=== PATIENT | female | born 1945 | race Caucasian/White ===

== ENCOUNTER 2017-02-16 13:12 | Outpatient (CLI) | payer MEDICARE, BC ==
--- NOTE | 2017-02-16 17:03 | ULT ---
ULTRASOUND LEFT BREAST 02/16/17 HISTORY: Ultrasound of the left breast was performed to assess a new nodular density seen on mammography in t he left breast at 2 o'clock position. FINDINGS: Ultrasound reveals an oblong shaped cystic mass at 2 o'clock just under the skin which corresponds t o the palpable nodule. This cystic mass has an irregular shape and a thickened wall. This could pote ntially represent a small hematoma. Patient does give a history of recent breast injury. Because of its complex nature, short term followup is recommended for repeat left breast ultrasound and mammogr am in six months. IMPRESSION: BIRADS 3: Probably Benign Finding Initial Short-Interval Follow-Up Suggested Initial short-term follow up (usually 6-month) examination Recommend left breast mammogram and ultrasound in six months to re-evaluate. POS: [facility]
--- NOTE | 2017-02-16 17:07 | MMO ---
DIAGNOSTIC LEFT MAMMOGRAM: 02/16/17 HISTORY: Patient presents for diagnostic left mammogram because of a new palpable nodule left breast upper ou ter quadrant. Comparison made to recent mammogram from [facility] dated 02/16/17. The mammograms do confirm a new nodular density near the skin at 2 o'clock which corresponds to the palpable abnormality. Ultrasound shows an irregularly shaped complex cystic mass. There is a thickened wall noted on ultra sound. Findings may represent hematoma. Short term followup is recommended to evaluate. IMPRESSION: BIRADS 3: Probably Benign Finding Initial Short-Interval Follow-Up Suggested Initial short-term follow up (usually 6-month) mammogram and ultrasound recommended POS: [facility]
== END 2017-02-16 13:13 | disposition home or self-care (01) ==
LOC: MAMMO 13:12
PROVIDERS: ATTEND Family Medicine
DX: N63.20 Unspecified lump in the left breast, unspecified quadrant (principal)
CPT/HCPCS: 76642; G0206

== ENCOUNTER 2017-03-18 20:30 | Outpatient (CLI) | payer MEDICARE, BC | END 2017-03-18 20:31 | disposition home or self-care (01) | LOC: SLEEPLAB 20:30 | PROVIDERS: ATTEND Family Medicine | DX: G47.33 Obstructive sleep apnea (adult) (pediatric) (principal); G47.12 Idiopathic hypersomnia without long sleep time; E66.9 Obesity, unspecified; K21.9 Gastro-esophageal reflux disease without esophagitis; E11.9 Type 2 diabetes mellitus without complications; G31.84 Mild cognitive impairment of uncertain or unknown etiology | CPT/HCPCS: 95811 ==

== ENCOUNTER 2017-07-28 07:33 | Outpatient (CLI) | payer MEDICARE, BC ==
[2017-07-28] MEDS ORDERED: Iopamidol 370 76% 100 ML VIAL ONE (12:59)
== END 2017-07-28 07:34 | disposition home or self-care (01) ==
LOC: BICCT 07:33
PROVIDERS: ATTEND Internal Medicine Gastroenterology
DX: R10.9 Unspecified abdominal pain (principal); N28.1 Cyst of kidney, acquired
CPT/HCPCS: 74177

== ENCOUNTER 2017-08-02 13:11 | Outpatient (CLI) | payer MEDICARE, BC | END 2017-08-02 13:12 | disposition home or self-care (01) | LOC: BICMAMMO 13:11 | PROVIDERS: ATTEND Family Medicine | DX: N63.20 Unspecified lump in the left breast, unspecified quadrant (principal); Z78.0 Asymptomatic menopausal state; M81.0 Age-related osteoporosis without current pathological fracture; M85.88 Other specified disorders of bone density and structure, other site; Z80.3 Family history of malignant neoplasm of breast; R92.8 Other abnormal and inconclusive findings on diagnostic imaging of breast | CPT/HCPCS: 76642; 77066; 77080; G0279 ==

== ENCOUNTER 2017-10-07 14:06 | Inpatient (IN) | payer MEDICARE, BC ==
[2017-10-07 14:42] LABS: #Basophils 0.1 thou/uL (0.0-0.2); #Eosinphils 0.2 thou/uL (0.0-0.7); #Lymphocytes 2.1 thou/uL (1.20-3.40); #Monocytes 0.6 thou/uL (0.11-0.59); #Neutrophils 6.1 thou/uL (1.40-6.50); %Basophils 1.2 % (0.0-1.0); %Eosinophils 2.3 % (0.0-10.0); %Lymphocytes 22.9 % (21.0-51.0); %Neutrophils 67.6 % (42.0-75.0); Hemoglobin 16.2 g/dL (12.0-16.0); Mean Corpuscular HGB CONC 34.9 g/dL (32.0-36.0); Mean Corpuscular Hemoglobin 30.9 pg (27.0-31.0); Mean Corpuscular Volume 88.4 fl (81.0-99.0); Mean Platelet Volume 8.8 fL (7.4-10.4); Platelet Count 264 thou/uL (130-400); RBC Distribution Width 11.6 % (11.5-14.5); Red Blood Cell (RBC) Count 5.26 mill/uL (4.20-5.40); White Blood Cell (WBC) Count 9.1 thou/uL (4.8-10.8)
[2017-10-07] MEDS ORDERED: Diltiazem 125 MG/25 ML ONE (14:49)
--- NOTE | 2017-10-07 14:54 | RAD ---
CHEST 1 VIEW: Date: 10/07/17 HISTORY: Dyspnea. COMPARISON: 08/06/12. FINDINGS: Cardiac silhouette magnified by projection. Pulmonary vasculature upper limits of normal. Mediastinum midline. No lobar consolidation or evidence of pneumothorax. IMPRESSION: No active cardiopulmonary abnormalities are demonstrated. POS: [facility]
[2017-10-07 14:59] LABS: ALT (SGPT) 96 U/L (8-55); AST (SGOT) 60 U/L (5-34); Albumin 4.2 g/dL (3.4-4.8); Alkaline Phosphatase 95 U/L (40-150); Anion Gap 15 mmol/L (10-20); BUN (Urea Nitrogen) 12 mg/dL (9.8-20.1); Bilirubin, Total 0.5 mg/dL (0.2-1.2); CK (CPK) 37 U/L (29-168); Calc. Creatinine Clearance 0 mL/min (70-130); Calcium 10.5 mg/dL (7.8-10.44); Carbon Dioxide 24 mmol/L (23-31); Chloride 106 mmol/L (98-107); Estimated GFR-MDRD 77; Globulin 3.2 g/dL (2.4-3.5); Glucose 138 mg/dL (83-110); Protein, Total 7.4 g/dL (6.0-8.3); Sodium 141 mmol/L (136-145)
[2017-10-07 15:00] LABS: Troponin I Less than 0.010 ng/mL (< 0.028)
[2017-10-07 17:40] LABS: Troponin I Less than 0.010 ng/mL (< 0.028)
[2017-10-07 18:12] VITALS: BMI 40.3
[2017-10-07] MEDS ORDERED: hydrALAZINE 20 MG/ML VIAL SLOW IVP PRN (20:32)
[2017-10-07] MEDS ORDERED: Acetaminophen 325 MG TAB PO PRN (20:32)
[2017-10-07] MEDS ORDERED: HumaLOG 300 UNITS/3 ML VIAL SC PRN (20:32)
[2017-10-07] MEDS ORDERED: Dextrose 5% in Water 1,000 ML IV PRN (20:32)
[2017-10-07] MEDS ORDERED: Diltiazem 125 MG in Sodium Chloride 0.9% 100 ML IVPB SCH (20:32)
[2017-10-07] MEDS ORDERED: Mag-Al 1200 mg/1200 mg/30 ML UDCUP PO PRN (20:32)
[2017-10-07] MEDS ORDERED: Dextrose 50% Abboject 50 ML SYRINGE SLOW IVP PRN (20:32)
[2017-10-07] MEDS ORDERED: Prevnar 13-Val Conj/PF 0.5 ML SYRINGE IM ONE (21:00)
[2017-10-07 21:14] LABS: Troponin I Less than 0.010 ng/mL (< 0.028)
[2017-10-07] MEDS: Famotidine 20 MG TAB PO SCH (21:21)
[2017-10-07] MEDS: HumaLOG 300 UNITS/3 ML VIAL SC PRN (21:22)
[2017-10-07] MEDS: Docusate 100 MG CAP PO SCH (21:24)
[2017-10-07] MEDS: Enoxaparin Sodium 100 MG/ML SYRINGE SC SCH (21:28)
--- NOTE | 2017-10-08 01:59 | HP ---
PRIMARY CARE PHYSICIAN: Clarke Moreno MD. CHIEF COMPLAINT: Palpitations for 2 weeks. HISTORY OF PRESENT ILLNESS: Ms. Bateman is a pleasant 72-year-old female that has a history of hypert ension and diabetes. She was in her usual state of health until earlier today, she started feeling s ome palpitations and her heart rate going up and down. She also says at times she felt pressure in h er chest and sometimes a sticking feeling in her chest. She also felt a bit lightheaded. She says t hat she also has been feeling like she just wants to lay around all the time. She says that she was taking her pulse and noticed that it was changing anywhere from 133 down to 120, it was going up and down. She went into see her primary care physician and they noticed the fluctuations in her heart ra te too and suggested that she go to the ER for evaluation. When she was evaluated in the ER, she was found to be in atrial fibrillation with rapid ventricular response and she was transferred to our fa cility from the [facility] for admission. She admits that these sensations have been off and on for she says quite some time, she cannot really put a timeframe on it, but at least t he last 3-4 weeks or more. REVIEW OF SYSTEMS: Constitutional: There have been no fevers, no chills, no night sweats, no weight loss. HEENT: No headaches, no dizziness, no visual changes, no sore throat, rhinorrhea, neck pain, no adenopathy. However, again she did have some lightheadedness. Pulmonary: No hemoptysis, no cou gh, no wheezing. Cardiovascular: As in the history of present illness. She denies any chest pain, no leg swelling or edema, no PND, no orthopnea. Gastrointestinal: No abdominal pain, no nausea, no vomiting, no change in bowels. Genitourinary: No urinary frequency, hematuria, no hesitancy. Neuro logic: No focal weakness, numbness, no seizures. Skin/Integument: No skin changes. No rash. Psyc hiatric: No symptoms of anxiety or depression. PAST MEDICAL HISTORY: Significant for diabetes mellitus, hypertension, gastroesophageal reflux disea se, hyperlipidemia, sleep apnea, and obesity. PAST SURGICAL HISTORY: She has had a hysterectomy, cholecystectomy, surgery to repair a break in her right arm, and cataract surgery in both eyes. ALLERGIES: No known drug allergies. SOCIAL HISTORY: She is , has 2 children. She is a nonsmoker, nondrinker. She would like to be a full code. Her is her surrogate decision maker. FAMILY HISTORY: Significant for cancer in her mother and heart disease in her father. CURRENT MEDICATIONS: Include metformin 500 mg twice daily, Januvia 100 mg daily, Dexilant 60 mg sahil y, valsartan 80 mg daily, Protonix 40 mg twice a day, and aspirin 81 mg daily. PHYSICAL EXAMINATION: GENERAL: She is alert and oriented. She appears to be in no acute distress. VITAL SIGNS: Blood pressure was 144/68, heart rate 83, respiratory rate of 18, temperature is 98.4. HEENT: Pupils are equal, round, and reactive. Extraocular muscles are intact. Her sclerae are anic teric. Throat, no erythema, no exudates. NECK: No adenopathy, no bruits. LUNGS: Clear. No wheezing, no rales. CARDIOVASCULAR: Currently, her heart rate is regular. The rate is normal. There are no murmurs, cl icks, or rubs. ABDOMEN: Obese, it is soft, it is nontender, nondistended. Positive for bowel sounds. No rebound o r guarding. EXTREMITIES: There is no clubbing, cyanosis, no edema. NEUROLOGIC: The exam is nonfocal. LABORATORY RESULTS: EKG, there was quite a bit of baseline artifact, but no discernible P waves, hea rt rate appears regular but with no P waves suspected to be atrial fibrillation. Sodium was 141, pot assium 4.0, chloride is 106, CO2 is 24, BUN of 12, creatinine 0.74, glucose is 138, calcium is 10.5. White blood cell count 9.1, hemoglobin 16.2, hematocrit is 46.5, and platelet count is 264. ASSESSMENT AND PLAN: 1. This is a pleasant 72-year-old female who presents with new-onset atrial fibrillation, originally was rapid ventricular response. She is currently on a Cardizem drip. She will be admitted to [facility]. We will go ahead and continue the IV Cardizem drip and start her on Lovenox the full dose. Ge t an echocardiogram as well as consult Cardiology. Thyroid function tests have already been ordered and are normal. 2. For diabetes mellitus, we will actually hold metformin for now, but continue Januvia and place he r on a sliding scale insulin. 3. For hypertension, continue valsartan as well as p.r.n. medications as needed and further recommen dations will be to follow.
[2017-10-08 05:29] LABS: Anion Gap 13 mmol/L (10-20); BUN (Urea Nitrogen) 16 mg/dL (9.8-20.1); Calc. Creatinine Clearance 109 mL/min (70-130); Calcium 9.7 mg/dL (7.8-10.44); Carbon Dioxide 29 mmol/L (23-31); Chloride 105 mmol/L (98-107); Estimated GFR-MDRD 76; Glucose 131 mg/dL (83-110); Sodium 143 mmol/L (136-145)
[2017-10-08 06:20] LABS: #Basophils 0.1 thou/uL (0.0-0.2); #Eosinphils 0.3 thou/uL (0.0-0.7); #Lymphocytes 2.9 thou/uL (1.20-3.40); #Monocytes 0.6 thou/uL (0.11-0.59); #Neutrophils 4.8 thou/uL (1.40-6.50); %Basophils 0.8 % (0.0-1.0); %Eosinophils 2.9 % (0.0-10.0); %Lymphocytes 33.4 % (21.0-51.0); %Monocytes 6.8 % (0.0-10.0); Hemoglobin 14.9 g/dL (12.0-16.0); Mean Corpuscular HGB CONC 33.1 g/dL (32.0-36.0); Mean Corpuscular Hemoglobin 30.2 pg (27.0-31.0); Mean Corpuscular Volume 91.1 fl (81.0-99.0); Mean Platelet Volume 7.4 fL (7.4-10.4); Platelet Count 254 thou/uL (130-400); RBC Distribution Width 12.1 % (11.5-14.5); Red Blood Cell (RBC) Count 4.94 mill/uL (4.20-5.40); White Blood Cell (WBC) Count 8.5 thou/uL (4.8-10.8)
[2017-10-08] MEDS: Alogliptin 6.25 MG TAB PO SCH (08:16)
[2017-10-08] MEDS: Famotidine 20 MG TAB PO SCH ×2 (08:17→21:45)
[2017-10-08] MEDS: Enoxaparin Sodium 100 MG/ML SYRINGE SC SCH (08:17)
[2017-10-08] MEDS: Valsartan 80 MG TAB PO SCH (08:17)
[2017-10-08] MEDS: Docusate 100 MG CAP PO SCH ×2 (08:27→21:45)
--- NOTE | 2017-10-08 10:35 | PDOC.PN ---
- Subjective Encounter Start Date: 10/08/17 Encounter Start Time: 10:33 Ms. Bateman was seen today in follow-up of AFIB with RVR. She does not have any complaints, and says she feels fine. She denies chest pain or shortness of breath. - Objective Resuscitation Status: Resuscitation Status FULL:Full Resuscitation MAR Reviewed: Yes Vital Signs & Weight: Vital Signs (12 hours) Temp Pulse Resp BP Pulse Ox 10/08/17 08:00 97.8 F 77 18 137/67 93 L 10/08/17 03:35 97.9 F 79 19 117/59 L 93 L Weight Weight 220 lb 6.4 oz I&O: 10/07/17 10/08/17 10/09/17 06:59 06:59 06:59 Intake Total 170 Output Total 0 Balance 170 Result Diagrams: 10/08/17 04:21 10/08/17 04:21 Additional Labs: Accuchecks 10/08/17 10/07/17 10/07/17 05:53 22:13 20:52 POC Glucose 137 H 122 H 179 H Phys Exam - Physical Examination HEENT: PERRLA Respiratory: no wheezing, no rales, no rhonchi, clear to auscultation bilateral Cardiovascular: RRR, no significant murmur, no rub Gastrointestinal: soft, non-tender, positive bowel sounds Musculoskeletal: no edema Dx/Plan (1) Atrial fibrillation Code(s): I48.91 - UNSPECIFIED ATRIAL FIBRILLATION Status: Acute (2) Hypertension Code(s): I10 - ESSENTIAL (PRIMARY) HYPERTENSION Status: Acute (3) Diabetes mellitus type 2 in obese Code(s): E11.69 - TYPE 2 DIABETES MELLITUS WITH OTHER SPECIFIED COMPLICATION; E66.9 - OBESITY, UNSPECIFIED Status: Acute (4) Morbid obesity with BMI of 40.0-44.9, adult Code(s): E66.01 - MORBID (SEVERE) OBESITY DUE TO EXCESS CALORIES; Z68.41 - BODY MASS INDEX (BMI) 40.0-44.9, ADULT Status: Acute - Plan * AFIB?- she is currently in sinus rhythm. She is on a Cardizem drip. * Echo has just been completed * HTN- blood pressure is stable * DM- blood glucose is stable.
[2017-10-08] MEDS: HumaLOG 300 UNITS/3 ML VIAL SC PRN (13:11)
--- NOTE | 2017-10-08 20:31 | CON ---
DATE OF CONSULT: 10/08/17 HISTORY: The patient is a 72-year-old woman who presents for evaluation of palpitations. The patient has a previous history of atypical chest pain. She underwent a cardiac catheterization in 2011. She was found to have normal left ventricular systolic function and normal coronary arteries. The patient reports that for the past month she has had palpitations. They can last up to several hours. They occur frequently. The patient denies having any chest discomfort. She denies any PND or orthopnea. The patient's cardiac risk factors include diabetes mellitus and hypertension. PAST MEDICAL HISTORY: 1. Diabetes mellitus. 2. Hypertension. 3. Sleep apnea. 4. GE reflux. PAST SURGICAL HISTORY: Hysterectomy, cholecystectomy, arm surgery, cataract surgery. SOCIAL HISTORY: Nonsmoker. FAMILY HISTORY: Positive family history of coronary artery disease. ALLERGIES: None. SOCIAL HISTORY: Nonsmoker. MEDICATIONS: Protonix 40 daily, metformin 500 b.i.d., Januvia 100 daily, Dexilant 60 daily, aspirin 81 daily. REVIEW OF SYSTEMS: A 10-point system unremarkable. No history of easy bruising , bright red blood per rectum, hematuria or dysuria. Ten-point system unremarkable. PHYSICAL EXAMINATION: GENERAL: Obese woman in no acute distress. VITAL SIGNS: Blood pressure was 116/58. NECK: No jugular distention, no carotid bruits. LUNGS: Clear to auscultation. HEART: Regular rate and rhythm, normal S1, S2, no murmurs. ABDOMEN: Distended. EXTREMITIES: Showed no edema. SKIN: Warm and dry. NEUROLOGIC: Nonfocal. VASCULAR: Radial pulses are 2+. LABORATORY: Sodium 143, potassium 4.0, chloride 105, bicarbonate 29, BUN 16, creatinine is 0.75, glucose is 131, troponin was less than 0.01. BNP was 24. Her EKG revealed sinus tachycardia with premature atrial contractions with voltage criteria for left ventricular hypertrophy. IMPRESSION: 1. Premature atrial contractions. 2. Diabetes mellitus. 3. Hypertension. 4. Obesity. This patient presents with symptomatic palpitations. The patient was thought to be in atrial fibrillation. The electrocardiogram and telemetry monitoring strips on the chart do not reveal atrial fibrillation. The telemetry strips from the emergency room are unfortunately not available. From a cardiac standpoint, we will continue to monitor her on telemetry. She will be taken off IV Cardizem. Will most likely benefit from beta aurora therapy. We will check the patient's echocardiogram and follow this patient with you through her hospitalization. KHANH
[2017-10-09] MEDS: Alogliptin 6.25 MG TAB PO SCH (09:01)
[2017-10-09] MEDS: Enoxaparin Sodium 40 MG/0.4 ML SYRINGE SC SCH (09:01)
[2017-10-09] MEDS: Famotidine 20 MG TAB PO SCH ×2 (09:01→21:34)
[2017-10-09] MEDS: Valsartan 80 MG TAB PO SCH (09:01)
[2017-10-09] MEDS: DULoxetine 60 MG CAP PO SCH (09:01)
[2017-10-09] MEDS: Docusate 100 MG CAP PO SCH ×3 (09:02→21:35)
[2017-10-09] MEDS: HumaLOG 300 UNITS/3 ML VIAL SC PRN (12:44)
--- NOTE | 2017-10-09 15:44 | PDOC.PN ---
- Subjective Encounter Start Date: 10/09/17 Encounter Start Time: 09:45 Subjective: pt up in bed no complains - Objective Resuscitation Status: Resuscitation Status FULL:Full Resuscitation Vital Signs & Weight: Vital Signs (12 hours) Temp Pulse Resp BP BP Pulse Ox 10/09/17 12:37 97.8 F 86 16 139/65 10/09/17 08:00 97.8 F 86 16 94 L 10/09/17 07:35 97.7 F 82 14 130/60 94 L 10/09/17 04:00 98.4 F 83 16 111/57 L 92 L Weight Weight 217 lb 12.8 oz I&O: 10/08/17 10/09/17 10/10/17 06:59 06:59 06:59 Intake Total 170 1012.2 Output Total 0 Balance 170 1012.2 Result Diagrams: 10/08/17 04:21 10/08/17 04:21 Additional Labs: Accuchecks 10/09/17 10/09/17 10/08/17 10:46 05:43 20:54 POC Glucose 202 H 127 H 140 H 10/08/17 16:39 POC Glucose 100 Phys Exam - Physical Examination HEENT: PERRLA, moist MMs, sclera anicteric, TM's clear, oral pharynx no lesions , 2+ tonsils Neck: no nodes, no JVD, supple, full ROM Respiratory: no wheezing, no rales, no rhonchi, wheezing present, clear to auscultation bilateral Cardiovascular: RRR, no significant murmur, no rub, gallop, irregular Gastrointestinal: soft, non-tender, no distention, positive bowel sounds Dx/Plan (1) Atrial fibrillation Code(s): I48.91 - UNSPECIFIED ATRIAL FIBRILLATION Status: Acute (2) Diabetes mellitus type 2 in obese Code(s): E11.69 - TYPE 2 DIABETES MELLITUS WITH OTHER SPECIFIED COMPLICATION; E66.9 - OBESITY, UNSPECIFIED Status: Acute (3) Hypertension Code(s): I10 - ESSENTIAL (PRIMARY) HYPERTENSION Status: Acute (4) Morbid obesity with BMI of 40.0-44.9, adult Code(s): E66.01 - MORBID (SEVERE) OBESITY DUE TO EXCESS CALORIES; Z68.41 - BODY MASS INDEX (BMI) 40.0-44.9, ADULT Status: Acute - Plan * . plan: per cardiology no afib but premature atrial contraction. pt's blood thinner has been discontinued. iv cardizam changed to metoprolol per cardio recommendation. will monitor overnight if stable possible discharge. echo pending. Review of Systems - Review of Systems Eyes: negative: Pain, Vision Change, Conjunctivae Inflammation, Eyelid Inflammation, Redness, Other ENT: negative: Ear Pain, Ear Discharge, Nose Pain, Nose Discharge, Nose Congestion, Mouth Pain, Mouth Swelling, Throat Pain, Throat Swelling, Other Respiratory: negative: Cough, Dry, Shortness of Breath, Hemoptysis, SOB with Excertion, Pleuritic Pain, Sputum, Wheezing Cardiovascular: negative: chest pain, palpitations, orthopnea, paroxysmal nocturnal dyspnea, edema, light headedness, other Gastrointestinal: negative: Nausea, Vomiting, Abdominal Pain, Diarrhea, Constipation, Melena, Hematochezia, Other - Medications/Allergies Allergies/Adverse Reactions: Allergies Allergy/AdvReac Type Severity Reaction Status Date / Time adhesive Allergy Verified 11/05/14 09:03 ezetimibe [From Zetia] Allergy Verified 01/02/14 15:36 rosuvastatin calcium Allergy Verified 01/02/14 15:36 [From Crestor] sertraline HCl [From Zoloft] Allergy Verified 01/02/14 15:36 simvastatin [From Zocor] Allergy Verified 01/02/14 15:36 Medications: Current Medications Acetaminophen (Tylenol) 650 mg PO Q4H PRN PRN Reason: Headache/Fever or Pain Last Admin: 10/08/17 08:16 Dose: 650 mg Al Hydroxide/Mg Hydroxide (Maalox) 30 ml PO Q6H PRN PRN Reason: Heartburn or Indigestion Alogliptin Benzoate (Alogliptin) 12.5 mg PO DAILY [facility] Last Admin: 10/09/17 09:01 Dose: 12.5 mg Dextrose/Water (Dextrose 50%) 25 gm SLOW IVP PRN PRN PRN Reason: Hypoglycemia Docusate Sodium (Colace) 100 mg PO BID [facility] Last Admin: 10/09/17 12:44 Dose: 100 mg Duloxetine HCl (Cymbalta) 60 mg PO DAILY [facility] Last Admin: 10/09/17 09:01 Dose: 60 mg Enoxaparin Sodium (Lovenox) 40 mg SC 0900 [facility] Last Admin: 10/09/17 09:01 Dose: 40 mg Famotidine (Pepcid) 20 mg PO BID [facility] Last Admin: 10/09/17 09:01 Dose: 20 mg Glucagon (Glucagon) 1 mg IM PRN PRN PRN Reason: Hypoglycemia Hydralazine HCl (Apresoline) 10 mg SLOW IVP Q4H PRN PRN Reason: Systolic BP > 180 Dextrose/Water (D5w) 1,000 mls @ 0 mls/hr IV .Q0M PRN; As Directed PRN Reason: Hypoglycemia Insulin Human Lispro (Humalog) 0 units SC .MODERATE SLIDING SC PRN PRN Reason: Moderate Correctional Scale Last Admin: 10/09/17 12:44 Dose: 4 unit Insulin Human Lispro (Humalog) 0 units SC .BEDTIME SLIDING SC PRN PRN Reason: Bedtime Correctional Scale Sodium Chloride (Flush - Normal Saline) 10 ml IVF Q12HR [facility] Last Admin: 10/09/17 09:02 Dose: 10 ml Sodium Chloride (Flush - Normal Saline) 10 ml IVF PRN PRN PRN Reason: Saline Flush Valsartan (Diovan) 80 mg PO QAM [facility] Last Admin: 10/09/17 09:01 Dose: 80 mg
[2017-10-09] MEDS ORDERED: Metoprolol Tartrate 25 MG TAB PO SCH (16:00)
[2017-10-10] MEDS ORDERED: Metoprolol Tartrate 25 MG TAB PO SCH (09:00)
[2017-10-10] MEDS: Famotidine 20 MG TAB PO SCH (09:33)
[2017-10-10] MEDS: DULoxetine 60 MG CAP PO SCH (09:34)
[2017-10-10] MEDS: Valsartan 80 MG TAB PO SCH (09:34)
[2017-10-10] MEDS: Docusate 100 MG CAP PO SCH (09:34)
[2017-10-10] MEDS: Alogliptin 6.25 MG TAB PO SCH (09:34)
[2017-10-10] MEDS: Enoxaparin Sodium 40 MG/0.4 ML SYRINGE SC SCH (09:36)
[2017-10-10 13:10] VITALS: BP 141/79; TEMP 98.4
--- NOTE | 2017-10-11 02:50 | DIS ---
DATE OF ADMISSION: 10/07/2017 DATE OF DISCHARGE: 10/10/2017 DISCHARGE DIAGNOSES: 1. Premature atrial contractions. 2. Diabetes. 3. Hypertension. 4. Morbid obesity. HOSPITAL COURSE: Patient is a very pleasant 72-year-old female who initially presented to the hospit md with complaints of palpitations. Patient's EKG indicated possible atrial fibrillation and patient was admitted for further evaluation. Patient initially was placed on Cardizem drip and was transiti oned to oral beta blockers. Patient was seen by Cardiology who stated that patient did not have atri al fibrillation, most likely appeared to be premature atrial contractions. Patient was put on metopr olol 50 mg and Cardiology recommended for patient to get a Holter monitor. Patient was discharged ho ak. Follow up with PCP. We will continue aspirin. HOME MEDICATIONS: Are as the following, Toprol-XL 50 mg daily, Cymbalta 60 mg daily, aspirin 81 mg d aily, Dexilant 60 mg daily, metformin 500 mg b.i.d., Januvia 100 mg daily, valsartan 80 mg daily. PHYSICAL EXAMINATION. VITAL SIGNS: Patient is afebrile at 97.8, 76, 18, 94% room air, 137/62. GENERAL: She is awake, alert, oriented x3, does not appear in distress. CARDIOVASCULAR: S1, S2 present. No murmurs, rubs, or gallops. ABDOMEN: Soft, nontender, positive bowel sounds. EXTREMITIES: No edema. Pedal pulses are present x2. DISCHARGE INSTRUCTIONS: Patient again will be discharged home. Follow up with PCP and Cardiology an d she has been notified to go to Cardiology's office to get a Holter monitor. Patient also was recom mended to have a stress test in about a month.
== END 2017-10-10 14:28 | disposition home or self-care (01) | DRG 309 ==
LOC: SCSER 14:06 → 2NO 15:22
PROVIDERS: ADMIT Internal Medicine; ATTEND Internal Medicine
DX: I49.1 Atrial premature depolarization (principal); Z68.41 Body mass index [BMI] 40.0-44.9, adult; E11.9 Type 2 diabetes mellitus without complications; I10 Essential (primary) hypertension; K21.9 Gastro-esophageal reflux disease without esophagitis; E78.5 Hyperlipidemia, unspecified; G47.30 Sleep apnea, unspecified; E66.01 Morbid (severe) obesity due to excess calories; Z79.84 Long term (current) use of oral hypoglycemic drugs; Z79.899 Other long term (current) drug therapy; Z90.710 Acquired absence of both cervix and uterus; Z90.49 Acquired absence of other specified parts of digestive tract
CPT/HCPCS: 36415; 36416; 71045; 80048; 80053; 82550; 82553; 83880; 84443; 84484; 85025; 93005; 93306; 96365; 96366; A4216; J1650; J7050

== ENCOUNTER 2018-01-30 08:19 | Outpatient (CLI) | payer MEDICARE, BC ==
[2018-01-30] MEDS ORDERED: Iopamidol 370 76% 100 ML VIAL ONE (09:00)
[2018-01-30 09:10] LABS: Estimated GFR-MDRD - POC Greater than 90
--- NOTE | 2018-01-30 12:27 | CT ---
CT OF THE ABDOMEN WITH AND WITHOUT IV CONTRAST: Date: 01/30/18 INDICATION: Right-sided flank pain with known right renal cyst. CONTRAST: 100 mL [id number]. COMPARISON: Prior CT of the abdomen and pelvis dated 07/28/17. FINDINGS: The small, heterogeneously enhancing, hypodense lesion involving the lateral aspect of the mid to low er pole of the left kidney on image 40 of series 3 is stable in size measuring approximately 1.2 cm. There is a stable 6.2 x 6.3 x 7.0 cm cyst involving the superior pole of the right kidney. There is a small 9.0 mm cyst involving the superior pole of the right kidney. There are subcentimeter cysts wit hin the superior pole of the left kidney. There are vascular calcifications noted involving thoracic and abdominal aorta. The lung bases are cl ear. The gallbladder is surgically absent. No focal hepatic lesion is evident. Adrenal glands and barajas creas are within normal limits. The spleen is normal appearing. No gross urothelial lesion is identified. There is moderate chronic osteitis pubis. There is scattered degenerative and osteoarthritic change. There is diffuse osteopenia. There is slight degenerative levoscoliosis of the lumbar spine. IMPRESSION: 1. Stable enhancing lesion involving the lateral aspect of the left mid to lower pole of the left ki dney. Findings remain suspicious for small renal malignancy. 2. Stable renal cysts. 3. No gross urothelial lesion identified. POS: [facility]
== END 2018-01-30 08:20 | disposition home or self-care (01) ==
LOC: SCSCT 08:19
PROVIDERS: ATTEND Urology
DX: N29 Other disorders of kidney and ureter in diseases classified elsewhere (principal); N28.9 Disorder of kidney and ureter, unspecified; N28.1 Cyst of kidney, acquired
CPT/HCPCS: 74170; 82565

== ENCOUNTER 2018-04-10 13:28 | Outpatient (CLI) | payer MEDICARE, BC ==
[2018-04-10 15:19] LABS: Mean Corpuscular HGB CONC 32.3 g/dL (32.0-36.0); Mean Corpuscular Hemoglobin 29.4 pg (27.0-31.0); Mean Platelet Volume 8.2 fL (7.4-10.4); Platelet Count 244 thou/uL (130-400); RBC Distribution Width 12.2 % (11.5-14.5); White Blood Cell (WBC) Count 9.3 thou/uL (4.8-10.8)
[2018-04-10 15:26] LABS: Prothrombin Time 12.8 SEC (12.0-14.7)
[2018-04-10 15:41] LABS: Anion Gap 11 mmol/L (10-20); BUN (Urea Nitrogen) 16 mg/dL (9.8-20.1); Calc. Creatinine Clearance 0 mL/min (70-130); Calcium 9.4 mg/dL (7.8-10.44); Carbon Dioxide 27 mmol/L (23-31); Chloride 105 mmol/L (98-107); Estimated GFR-MDRD 76; Glucose 130 mg/dL (83-110); Potassium 3.6 mmol/L (3.5-5.1); Sodium 139 mmol/L (136-145)
--- NOTE | 2018-04-10 18:09 | RAD ---
CHEST TWO VIEWS: HISTORY: Preoperative exam. COMPARISON: 10/07/2017 FINDINGS: Normal cardiac silhouette. Pulmonary vessels and hilum are normal. Costophrenic angles are clear. No consolidation or mass. No pneumothorax or osseous abnormalities. IMPRESSION: No acute cardiopulmonary process. POS: [facility]
== END 2018-04-10 13:29 | disposition home or self-care (01) ==
LOC: LABBT 13:28
PROVIDERS: ATTEND Orthopaedic Surgery
DX: Z01.818 Encounter for other preprocedural examination (principal); M17.12 Unilateral primary osteoarthritis, left knee
CPT/HCPCS: 71046; 80048; 85027; 85610; 86850; 86900; 86901; 87081; 93005; 93010

== ENCOUNTER 2018-04-17 12:12 | Inpatient (IN) | payer MEDICARE, BC ==
[2018-04-10 13:48] VITALS: BMI 39.9
[~2018-04-17 12:12] MED LIST: Bupivacaine HCl 0.5%/Epinephrine 1:200,000/PF 30 ml Vial ONE; Bupivacaine/Epinephrine 0.25% 30 ML VIAL ONE
[2018-04-17] MEDS ORDERED: Midazolam HCl 2 mg/2 ml Vial ONE (12:58)
[2018-04-17] MEDS ORDERED: Fentanyl 100 MCG/2 ML VIAL ONE ×4 (12:58→17:09)
[2018-04-17] MEDS ORDERED: Vancomycin HCl 1.5 GM in Sodium Chloride 0.9% 250 ML 300 ML IVPB SCH (13:30)
[2018-04-17] MEDS ORDERED: CEFAZOLIN 2 GM/50 ML BAG ONE (14:02)
[2018-04-17] MEDS ORDERED: traMADol HCl 50 MG TAB PO PRN ×2 (14:52)
[2018-04-17] MEDS ORDERED: HYDROcodone/Acetaminophen 5/325 mg Tablet PO PRN ×2 (14:52)
[2018-04-17] MEDS ORDERED: Ondansetron PF 4 MG/2 ML Vial IVP PRN ×2 (14:52→17:04)
[2018-04-17] MEDS ORDERED: Zolpidem Tartrate 5 MG TAB PO PRN ×2 (14:52→17:04)
[2018-04-17] MEDS ORDERED: Promethazine HCl 25 MG/ML VIAL IM PRN ×2 (14:52→17:04)
[2018-04-17] MEDS ORDERED: Fentanyl 100 MCG/2 ML VIAL SLOW IVP PRN (14:53)
[2018-04-17] MEDS ORDERED: HYDROcodone/Acetaminophen 10/325 mg Tablet PO PRN ×2 (16:21)
[2018-04-17] MEDS ORDERED: Ondansetron HCl/PF 4 MG/2 ML Vial IVP PRN (16:37)
[2018-04-17] MEDS ORDERED: Morphine Sulfate 2 MG/ML SYRINGE SLOW IVP PRN (16:37)
[2018-04-17] MEDS ORDERED: HYDROmorphone 2 MG/ML VIAL SLOW IVP PRN (16:37)
[2018-04-17] MEDS ORDERED: PACU-Morphine 4MG/ML VIAL SLOW IVP PRN (16:37)
[2018-04-17] MEDS ORDERED: fentaNYL Citrate/PF 2,000 MCG in Sodium Chloride 0.9% 60 ML IV PRN (17:04)
[2018-04-17] MEDS ORDERED: diphenhydrAMINE 50 MG/ML VIAL IM PRN (17:04)
[2018-04-17] MEDS ORDERED: diphenhydrAMINE 25 MG CAP PO PRN (17:04)
[2018-04-17] MEDS ORDERED: Naloxone HCl 0.4 mg/ml Vial IV PRN (17:04)
[2018-04-17] MEDS ORDERED: diphenhydrAMINE 50 MG/ML VIAL IVP PRN (17:04)
--- NOTE | 2018-04-17 17:07 | RAD ---
LEFT KNEE 2 VIEWS: HISTORY: Total knee replacement postop. FINDINGS/IMPRESSION: There are recent postop changes of total knee arthroplasty in good position and alignment. Skin stap les and soft tissue air are present. POS: [facility]
[2018-04-17] MEDS ORDERED: Communication Order-Pharmacy FS SCH (17:15)
[2018-04-17] MEDS ORDERED: Esmolol 100 MG/10 ML VIAL ONE (17:53)
[2018-04-17] MEDS: Ketorolac Tromethamine 30 MG/ML VIAL IVP SCH (18:45)
[2018-04-17] MEDS ORDERED: Ondansetron PF 4 MG/2 ML Vial ONE (19:56)
[2018-04-17] MEDS ORDERED: Lidocaine 1% PF 5 ML VIAL ONE (19:56)
[2018-04-17] MEDS ORDERED: Dexamethasone 20 MG/5 ML VIAL ONE (19:56)
[2018-04-17] MEDS ORDERED: PROPOFOL 200 MG/20 ML VIAL ONE (19:56)
[2018-04-17] MEDS ORDERED: Metoclopramide HCl 10 MG/2 ML VIAL ONE (19:56)
[2018-04-17] MEDS: Aspirin 81 mg Enteric Coated Tablet PO SCH (20:49)
[2018-04-17] MEDS: Ferrous Gluconate 324 MG TAB PO SCH (20:49)
[2018-04-17] MEDS: CEFAZOLIN 2 GM/50 ML BAG IVPB SCH (21:01)
--- NOTE | 2018-04-18 00:03 | OP ---
DATE OF PROCEDURE: 04/17/2018 PREOPERATIVE DIAGNOSIS: Left knee osteoarthritis. POSTOPERATIVE DIAGNOSIS: Left knee osteoarthritis. PROCEDURE PERFORMED: Left total knee arthroplasty. ANESTHESIA: General. 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 TOURNIQUET TIME: 69 minutes at 300 mmHg. IMPLANTS: DePuy Sigma size 4 femur, 2.5 tibia, 8 mm poly, and 35 mm all poly patellar buttons. COMPLICATIONS: None. DRAINS: None. SPECIMENS REMOVED: None. OUTCOME: Stable total knee arthroplasty. INDICATIONS: The patient is a pleasant 72-year-old lady with a long history of bilateral knee pain, left greater than right. She has tried activity modification, weight loss as well as steroid injections; none of which are now providing her pain relief. She is now having pain on a daily basis with pain with activities of normal daily living. After discussion with the patient including risks and benefits, we decided to proceed with total knee arthroplasty. Informed consent has been obtained. All questions answered. DESCRIPTION OF PROCEDURE: The patient was brought to the operating room and a time-out performed followed by induction of general anesthesia. Next, the patient was positioned supine on the OR table and a sterile prep and drape was performed of the left lower extremity. Next, limb was exsanguinated with Esmarch bandage. Tourniquet inflated to 300 mmHg. Next, midline anterior knee incision was made. This was followed by a medial parapatellar arthrotomy. Remnants of medial and lateral menisci were excised as was the ACL. Next, a step drill was used to obtain a starting point of the distal femur. This was followed by intramedullary alignment for a distal femoral cut. The cutting block was pinned in place and then a distal femur was cut without difficulty. Next, the sizing block was pinned to the distal femur and it was determined that a size 4 would be of appropriate size. As such, the 4-in-1 cutting block was then placed over these pins of the distal femur and then the final cuts performed. This was then followed by a step drill used to obtain a starting point into the tibial canal. The intramedullary alignment guide cheikh was then passed down the canal, and the proximal tibial cutting block pinned to the anterior tibia. The cut was performed and the block was removed from the tibia. Next, the guide pins were removed from the proximal tibia and then the tibia was sized to a size 2.5. This trial was applied to the top of the tibia and then pinned in place followed by further proximal tibial preparation with the reamer and cruciform punch. The trial tibial tray was left in place and then the size 4 femoral trial was applied to the distal femur and an 8 mm spacer applied. This resulted in what appeared to be symmetric flexion and extension gaps and good rollback. Next, using a freehand technique, the patella was resurfaced followed by placement of 3 PEG holes. This was a size 35. PEG holes were then also drilled through the femoral trial. The knee was found to be quite stable and it did come into full extension and had nice symmetry with flexion. All trial components were then removed from the knee and the knee was thoroughly irrigated with normal saline using Pulsavac with a total of 5 L used during the procedure. At this point, cement was mixed. The tibial tray was cemented in place followed by the femoral component. Excess cement was removed and then the poly liner was inserted. The knee was brought into full extension with axial compression applied and then the patella was cemented in place. Excess cement was removed and then once the cement had cured, wound closure performed. This was done with #2 Vicryl for the quadriceps mechanism followed by 2-0 Vicryl subcutaneous and duane for the skin. Xeroform guaze, Webril, and Silvino wrap dressing were applied to the knee. Tourniquet was let down with a total time of 69 minutes and the patient was transferred to recovery room in stable condition. There were no complications. The patient tolerated the procedure well. Job ID: [id number]
[2018-04-18] MEDS: Ketorolac Tromethamine 30 MG/ML VIAL IVP SCH ×5 (00:19→23:33)
[2018-04-18] MEDS: CEFAZOLIN 2 GM/50 ML BAG IVPB SCH (05:24)
[2018-04-18 05:52] LABS: #Lymphocytes 0.7 thou/uL (1.20-3.40); #Monocytes 0.6 thou/uL (0.11-0.59); #Neutrophils 9.6 thou/uL (1.40-6.50); %Basophils 0.1 % (0.0-1.0); %Eosinophils 0.2 % (0.0-10.0); %Lymphocytes 6.5 % (21.0-51.0); %Monocytes 5.4 % (0.0-10.0); %Neutrophils 87.9 % (42.0-75.0); Hemoglobin 13.5 g/dL (12.0-16.0); Mean Corpuscular HGB CONC 32.9 g/dL (32.0-36.0); Mean Corpuscular Hemoglobin 30.4 pg (27.0-31.0); Mean Corpuscular Volume 92.6 fL (78.0-98.0); Platelet Count 243 thou/uL (130-400); RBC Distribution Width 12.1 % (11.5-14.5); Red Blood Cell (RBC) Count 4.42 mill/uL (4.20-5.40); White Blood Cell (WBC) Count 10.9 thou/uL (4.8-10.8)
[2018-04-18] MEDS: Alogliptin 25 MG TAB PO SCH (07:43)
[2018-04-18] MEDS: Aspirin 81 mg Enteric Coated Tablet PO SCH ×2 (07:43→22:05)
[2018-04-18] MEDS: Ferrous Gluconate 324 MG TAB PO SCH ×2 (07:44→22:05)
[2018-04-18] MEDS ORDERED: Prevnar 13-Val Conj/PF 0.5 ML SYRINGE IM ONE (09:00)
--- NOTE | 2018-04-18 10:42 | PDOC.PN ---
- Subjective Encounter Start Date: 04/18/18 Encounter Start Time: 10:30 Subjective: no sob or chest pain -: feels better, pain is controlled - Objective MAR Reviewed: Yes Vital Signs & Weight: Vital Signs (12 hours) Temp Pulse Resp BP Pulse Ox 04/18/18 08:00 98.3 F 79 16 97/65 93 L 04/18/18 04:43 98.0 F 114 H 20 110/69 94 L 04/18/18 00:17 98.5 F 116 H 20 116/74 94 L Weight Weight 218 lb I&O: 04/17/18 04/18/18 04/19/18 06:59 06:59 06:59 Intake Total 2381.0 Output Total 500 Balance 1881.0 Result Diagrams: 04/18/18 05:12 Phys Exam - Physical Examination HEENT: PERRLA, moist MMs Neck: no JVD, supple Respiratory: no wheezing, no rales Cardiovascular: RRR, no significant murmur Gastrointestinal: soft, non-tender, positive bowel sounds Musculoskeletal: no edema, pulses present left knee in dressing Neurological: non-focal, moves all 4 limbs Psychiatric: normal affect, A&O x 3 Dx/Plan (1) Status post total knee replacement, left Code(s): Z96.652 - PRESENCE OF LEFT ARTIFICIAL KNEE JOINT Status: Acute (2) DM type 2 (diabetes mellitus, type 2) Status: Chronic Qualifiers: Diabetes mellitus community board member insulin use: without community board member use Diabetes mellitus complication status: with unspecified complications Qualified Code(s) : E11.8 - Type 2 diabetes mellitus with unspecified complications (3) Dyslipidemia Code(s): E78.5 - HYPERLIPIDEMIA, UNSPECIFIED Status: Chronic (4) JENNYFER (obstructive sleep apnea) Code(s): G47.33 - OBSTRUCTIVE SLEEP APNEA (ADULT) (PEDIATRIC) Status: Chronic (5) Obesity (BMI 30-39.9) Code(s): E66.9 - OBESITY, UNSPECIFIED Status: Chronic (6) Hypertension Code(s): I10 - ESSENTIAL (PRIMARY) HYPERTENSION Status: Chronic Qualifiers: Hypertension type: essential hypertension Qualified Code(s): I10 - Essential (primary) hypertension - Plan post op recovering well -: to work with PT per ortho adv -: is on asp bid, alogliptin for dm -: fentanyl, toradol prn, ropivacaine nr block -: prior echo 10/17 good ef, will f/u * . Review of Systems - Medications/Allergies Allergies/Adverse Reactions: Allergies Allergy/AdvReac Type Severity Reaction Status Date / Time adhesive Allergy Verified 04/17/18 23:11 ezetimibe [From Zetia] Allergy Verified 04/17/18 23:11 rosuvastatin calcium Allergy Verified 04/17/18 23:11 [From Crestor] sertraline HCl [From Zoloft] Allergy Verified 04/17/18 23:11 simvastatin [From Zocor] Allergy Verified 04/17/18 23:11 Medications: Current Medications Alogliptin Benzoate (Alogliptin) 25 mg PO DAILY [facility] Last Admin: 04/18/18 07:43 Dose: 25 mg Aspirin (Ecotrin) 81 mg PO BID [facility] Last Admin: 04/18/18 07:43 Dose: 81 mg Diphenhydramine HCl (Benadryl) 25 mg IVP Q3H PRN PRN Reason: Itching Diphenhydramine HCl (Benadryl) 25 mg PO Q3H PRN PRN Reason: Itching Diphenhydramine HCl (Benadryl) 25 mg IM Q3H PRN PRN Reason: Itching Ferrous Gluconate (Fergon) 324 mg PO BID [facility] Last Admin: 04/18/18 07:44 Dose: 324 mg Ropivacaine 250 ml/ Device 250 mls @ 10 mls/hr NERVE BLCK INF [facility] Fentanyl Citrate 2,000 mcg/ (Sodium Chloride) 100 mls @ 0 mls/hr IV INF PRN PRN Reason: Pain Ketorolac Tromethamine (Toradol) 15 mg IVP Q6HR [facility] Stop: 04/19/18 12:01 Last Admin: 04/18/18 10:14 Dose: 15 mg Miscellaneous Information (Communication Order-Pharmacy) 1 each FS ONE [facility] Stop: 04/18/18 17:16 Naloxone HCl (Narcan) 0.2 mg IV Q5MIN PRN PRN Reason: Opiate Reversal Ondansetron HCl (Zofran) 4 mg IVP Q6H PRN PRN Reason: Nausea/Vomiting Last Admin: 04/18/18 10:14 Dose: 4 mg Pantoprazole Sodium (Protonix) 40 mg PO DAILY [facility] Last Admin: 04/18/18 07:44 Dose: 40 mg Promethazine HCl (Phenergan) 12.5 mg IM Q4H PRN PRN Reason: Nausea/Vomiting Sodium Chloride (Flush - Normal Saline) 10 ml IVF PRN PRN PRN Reason: Saline Flush Zolpidem Tartrate (Ambien) 5 mg PO HSPRN PRN PRN Reason: Insomnia
[2018-04-18] MEDS: Acetaminophen 500 MG TAB PO PRN ×2 (13:28→22:12)
[2018-04-18] MEDS ORDERED: HYDROcodone/Acetaminophen 5/325 mg Tablet PO PRN ×2 (15:42)
[2018-04-18] MEDS ORDERED: traMADol HCl 50 MG TAB PO PRN (15:42)
[2018-04-18] MEDS ORDERED: diphenhydrAMINE 50 MG/ML VIAL IVP PRN (15:45)
[2018-04-18] MEDS: Ropivacaine HCl/PF 250 ML in Premix Bag 1 BAG NERVE BLCK SCH (18:34)
[2018-04-19 05:44] LABS: #Basophils 0.1 thou/uL (0.0-0.2); #Eosinphils 0.1 thou/uL (0.0-0.7); #Lymphocytes 1.4 thou/uL (1.20-3.40); #Monocytes 0.4 thou/uL (0.11-0.59); #Neutrophils 6.1 thou/uL (1.40-6.50); %Basophils 0.7 % (0.0-1.0); %Eosinophils 1.7 % (0.0-10.0); %Lymphocytes 16.7 % (21.0-51.0); Hemoglobin 12.8 g/dL (12.0-16.0); Mean Corpuscular HGB CONC 33.3 g/dL (32.0-36.0); Mean Corpuscular Hemoglobin 31.2 pg (27.0-31.0); Mean Corpuscular Volume 93.7 fL (78.0-98.0); Mean Platelet Volume 7.7 fL (7.4-10.4); Platelet Count 167 thou/uL (130-400); RBC Distribution Width 12.2 % (11.5-14.5); Red Blood Cell (RBC) Count 4.09 mill/uL (4.20-5.40); White Blood Cell (WBC) Count 8.1 thou/uL (4.8-10.8)
[2018-04-19] MEDS: Ketorolac Tromethamine 30 MG/ML VIAL IVP SCH ×2 (05:59→12:00)
[2018-04-19] MEDS: Aspirin 81 mg Enteric Coated Tablet PO SCH ×2 (07:57→20:45)
[2018-04-19] MEDS: Alogliptin 25 MG TAB PO SCH (07:57)
[2018-04-19] MEDS: Ferrous Gluconate 324 MG TAB PO SCH ×2 (07:57→20:45)
[2018-04-19] MEDS: Ropivacaine HCl/PF 250 ML in Premix Bag 1 BAG NERVE BLCK SCH (20:45)
[2018-04-19 21:20] LABS: Bilirubin Negative (Negative); Blood, Urine Negative (Negative); Clarity CLEAR (Clear); Glucose, Urine (Dipstick) 100 mg/dL (Negative); Leukocyte Negative (Negative); Nitrite Negative (Negative); Protein, Urine (Dipstick) Negative (Neg-Trace); Specific Gravity, Urine 1.013 (1.002-1.036); pH, Urine 6.5 (5.0-9.0)
[2018-04-19 21:22] LABS: Bacteria/HPF None Seen HPF (None Seen); Hyaline Casts/LPF 0-3 HYALINE CAST LPF (0-3 Hyaline); Pathc Cast-AUWi Flag 0.58 (0-2.49); Squamous Epithelial 0-3 HPF (0-3); WBC/HPF 0-3 HPF (0-3)
[2018-04-20] MEDS: traMADol HCl 50 MG TAB PO PRN ×2 (05:52→11:53)
[2018-04-20 08:16] LABS: #Eosinphils 0.3 thou/uL (0.0-0.7); #Lymphocytes 1.3 thou/uL (1.20-3.40); #Monocytes 0.5 thou/uL (0.11-0.59); #Neutrophils 6.3 thou/uL (1.40-6.50); %Basophils 0.4 % (0.0-1.0); %Eosinophils 3.6 % (0.0-10.0); %Lymphocytes 14.9 % (21.0-51.0); %Monocytes 6.1 % (0.0-10.0); %Neutrophils 74.9 % (42.0-75.0); Mean Corpuscular HGB CONC 32.9 g/dL (32.0-36.0); Mean Corpuscular Hemoglobin 30.3 pg (27.0-31.0); Mean Corpuscular Volume 92.2 fL (78.0-98.0); Mean Platelet Volume 8.4 fL (7.4-10.4); Platelet Count 153 thou/uL (130-400); RBC Distribution Width 11.9 % (11.5-14.5); Red Blood Cell (RBC) Count 3.96 mill/uL (4.20-5.40); White Blood Cell (WBC) Count 8.4 thou/uL (4.8-10.8)
[2018-04-20] MEDS: Aspirin 81 mg Enteric Coated Tablet PO SCH (08:18)
[2018-04-20] MEDS: Ferrous Gluconate 324 MG TAB PO SCH (08:18)
[2018-04-20] MEDS: Alogliptin 25 MG TAB PO SCH (08:18)
[2018-04-20 08:20] VITALS: BP 124/81; TEMP 98.1
[2018-04-20] MEDS ORDERED: Milk Of Magnesia 30 ML UDCUP PO PRN (08:24)
[2018-04-20 08:28] LABS: Anion Gap 12 mmol/L (10-20); BUN (Urea Nitrogen) 10 mg/dL (9.8-20.1); Calc. Creatinine Clearance 132 mL/min (70-130); Calcium 8.9 mg/dL (7.8-10.44); Carbon Dioxide 26 mmol/L (23-31); Chloride 105 mmol/L (98-107); Estimated GFR-MDRD Greater than 90; Glucose 147 mg/dL (83-110); Potassium 3.8 mmol/L (3.5-5.1); Sodium 139 mmol/L (136-145)
== END 2018-04-20 12:34 | disposition home or self-care (01) | DRG 470 ==
LOC: SDC 12:12 → SJJU 16:21
PROVIDERS: ADMIT Orthopaedic Surgery; ATTEND Orthopaedic Surgery
PROC: 0SRD0J9 Replacement of Left Knee Joint with Synthetic Substitute, Cemented, Open Approach (ICD-10-PCS; principal; 2018-04-17)
DX: M17.12 Unilateral primary osteoarthritis, left knee (principal); I10 Essential (primary) hypertension; E11.9 Type 2 diabetes mellitus without complications; F32.9 Major depressive disorder, single episode, unspecified; F41.9 Anxiety disorder, unspecified; E78.5 Hyperlipidemia, unspecified; E66.9 Obesity, unspecified; Z68.39 Body mass index [BMI] 39.0-39.9, adult; Z88.8 Allergy status to other drugs, medicaments and biological substances; Z79.84 Long term (current) use of oral hypoglycemic drugs; Z79.82 Long term (current) use of aspirin; Z79.899 Other long term (current) drug therapy; G47.33 Obstructive sleep apnea (adult) (pediatric)
CPT/HCPCS: 36415; 36416; 80048; 81001; 85025; 90471; 90670; C1713; C1776; G0009; G8978-GP-CL; G8979-GP-CJ; J0670; J1100; J1885; J2001; J2250; J2405; J2704; J2765; J2795; J3010; J3370; J7050

== ENCOUNTER 2018-06-27 08:31 | Outpatient (CLI) | payer MEDICARE, BC ==
--- NOTE | 2018-06-27 10:50 | ULT ---
LIMITED ULTRASOUND RIGHT BREAST: 06/27/2018 HISTORY: Palpable abnormality, inner right breast. FINDINGS: Limited sonographic evaluation of the right breast was performed in the region of the patient's clini jaimee palpable abnormality. Imaging was obtained at the 3 o'clock position. No mass or cystic lesio n is seen in the right breast to correspond to the palpable abnormality. Homogeneous breast echotext ure is noted involving the breast tissue in this region. Mammographic evaluation demonstrated no mas s or architectural distortion. IMPRESSION: 1. BI-RADS category 2-Benign findings. Routine annual mammographic screening is recommended. 2. The patient's palpable abnormality should be further managed clinically. Negative mammographic o r sonographic findings should not preclude biopsy of a clinically suspicious palpable abnormality. POS: ROBERT
== END 2018-06-27 08:32 | disposition home or self-care (01) ==
LOC: BICMAMMO 08:31
PROVIDERS: ATTEND Family Medicine
DX: N63.10 Unspecified lump in the right breast, unspecified quadrant (principal); N64.4 Mastodynia; R92.1 Mammographic calcification found on diagnostic imaging of breast; Z80.3 Family history of malignant neoplasm of breast
CPT/HCPCS: 76642; 77066; G0279

== ENCOUNTER 2018-12-18 09:46 | Outpatient (CLI) | payer MEDICARE, BC ==
--- NOTE | 2018-12-18 11:22 | MRI ---
MRI lumbar spine noncontrast: HISTORY: Lumbar radiculopathy. Low back pain rated of the left hip, times a couple months. COMPARISON: None FINDINGS: Appropriate T1 marrow signal intensity lumbar vertebra. Lumbar spine vertebral body height is [place]. No fracture. Incompletely evaluated hemangioma along the right aspect of the T10 and L4 vertebral bodies T2 hyperintensity emanating from the right renal cortex, compatible with a cyst. Incomplete evaluatio n Appropriate signal intensity of the paraspinal muscles Conus medullaris terminates at the inferior aspect of L1 T12-L1:Minimal left and right paracentral disc bulges. No significant central canal stenosis. Bilater ally, neural foramina are patent. L1-L2:Adequate disc hydration. No significant central canal stenosis or significant neural foraminal narrowing. L2-L3:Adequate disc hydration. Generalized disc bulge, ligament flavum thickening and facet hypertrop hy result in mild central canal stenosis. Mild to moderate right foraminal narrowing. Left neural foramen is patent. L3-L4:Desiccation with mild loss of disc space height. Broad-based disc bulge minimal central disc pr otrusion. There is ligamentum flavum thickening and facet hypertrophy. Mild central canal stenosis. Mild bilateral foraminal narrowing. L4-L5:Moderate loss of disc space height. Broad-based disc bulge, ligament flavum thickening and face t hypertrophy result in moderate canal stenosis. Moderate bilateral neural foraminal narrowing. L5-S1:Adequate disc hydration. No significant central canal stenosis or significant neural foraminal narrowing. There is bilateral facet hypertrophy. IMPRESSION: 1. Moderate central canal stenosis at L4-L5. 2. Varying degrees of neural foraminal narrowing as detailed above. 3. Results study were conveyed via [employer] connect with Remigio Shannon 12/18/2018 at 11:08 AM Code CR
== END 2018-12-18 09:47 | disposition home or self-care (01) ==
LOC: SCSMRI 09:46
PROVIDERS: ATTEND Physician Assistant Surgical
DX: M54.16 Radiculopathy, lumbar region (principal); M48.061 Spinal stenosis, lumbar region without neurogenic claudication
CPT/HCPCS: 72148

== ENCOUNTER 2019-01-17 14:26 | Outpatient (CLI) | payer MEDICARE, BC ==
--- NOTE | 2019-01-17 14:57 | RAD ---
CERVICAL SPINE RADIOGRAPHS WITH BENDING LATERAL PROJECTIONS INDICATION: Spondylosis with myelopathy and radiculopathy COMPARISON: None. FINDINGS: Disc and facets joints: There is mild multilevel disc degenerative disease, most pronounced at C5-6 and C6-7. There is mild multilevel facet degenerative change. Fracture: No acute fracture. Alignment: There is slight anterior translation of C3 on C4 and C6 on C7 on the neutral evaluation. There is mild anterior translation of C3 on C4, C4-5 and C5-6 with flexion. The anterior translation of C6 on C7 is stable with flexion. There is reduction of all levels with extension. Prevertebral soft tissues: Normal Lung apices: Clear. IMPRESSION: Mild spondylosis of the lumbar spine with mild abnormal translational motion seen at C3-4 through C5-6. Mild anterior translation of C6 on C7 is stable with flexion but does reduce with extension.
== END 2019-01-17 14:27 | disposition home or self-care (01) ==
LOC: TBSIIMAG 14:26
PROVIDERS: ATTEND Surgery
DX: M54.2 Cervicalgia (principal); M47.816 Spondylosis without myelopathy or radiculopathy, lumbar region; R93.7 Abnormal findings on diagnostic imaging of other parts of musculoskeletal system
CPT/HCPCS: 72050

== ENCOUNTER 2019-07-05 07:11 | Day surgery (SDC) | payer MEDICARE, BC ==
[2019-07-04 11:04] VITALS: BMI 40.2
[2019-07-05] MEDS ORDERED: Thrombin 5000 UNITS/5 ML VIAL ONE (07:52)
[2019-07-05] MEDS ORDERED: Fentanyl 100 MCG/2 ML VIAL ONE ×3 (08:18→12:42)
[2019-07-05] MEDS ORDERED: Midazolam HCl 2 mg/2 ml Vial ONE (08:18)
[2019-07-05 08:23] LABS: #Basophils 0.1 thou/uL (0.0-0.2); #Eosinphils 0.2 thou/uL (0.0-0.7); #Monocytes 0.4 thou/uL (0.11-0.59); #Neutrophils 4.6 thou/uL (1.40-6.50); %Basophils 0.8 % (0.0-1.0); %Eosinophils 3.4 % (0.0-10.0); %Lymphocytes 27.6 % (21.0-51.0); %Monocytes 5.8 % (0.0-10.0); %Neutrophils 62.5 % (42.0-75.0); Hemoglobin 15.2 g/dL (12.0-16.0); Mean Corpuscular HGB CONC 33.9 g/dL (32.0-36.0); Mean Corpuscular Hemoglobin 30.7 pg (27.0-31.0); Mean Corpuscular Volume 90.4 fL (78.0-98.0); Mean Platelet Volume 7.7 fL (7.4-10.4); Platelet Count 233 thou/uL (130-400); RBC Distribution Width 12.4 % (11.5-14.5); Red Blood Cell (RBC) Count 4.94 mill/uL (4.20-5.40); White Blood Cell (WBC) Count 7.4 thou/uL (4.8-10.8)
[2019-07-05 08:32] LABS: INR-International Normal Ratio 0.9; PTT 27.3 SEC (22.9-36.1); Prothrombin Time 12.3 SEC (12.0-14.7)
[2019-07-05 08:45] LABS: Anion Gap 14 mmol/L (10-20); BUN (Urea Nitrogen) 15 mg/dL (9.8-20.1); Calc. Creatinine Clearance 110 mL/min (70-130); Calcium 9.4 mg/dL (7.8-10.44); Carbon Dioxide 26 mmol/L (23-31); Chloride 106 mmol/L (98-107); Estimated GFR-MDRD 79; Glucose 125 mg/dL (83-110); Potassium 4.1 mmol/L (3.5-5.1); Sodium 142 mmol/L (136-145)
[2019-07-05] MEDS ORDERED: Glycopyrrolate 0.2 MG/ML 5 ML SYRINGE ONE (10:30)
[2019-07-05] MEDS ORDERED: diphenhydrAMINE 50 MG/ML VIAL ONE (10:30)
[2019-07-05] MEDS ORDERED: Metoclopramide HCl 10 MG/2 ML VIAL ONE (10:30)
[2019-07-05] MEDS ORDERED: EPHEDRINE 25 MG/5 ML SYRINGE ONE (10:30)
[2019-07-05] MEDS ORDERED: Rocuronium Bromide 10 MG/ML (10ML VIAL) ONE (10:30)
[2019-07-05] MEDS ORDERED: PROPOFOL 200 MG/20 ML VIAL ONE (10:30)
[2019-07-05] MEDS ORDERED: Ondansetron PF 4 MG/2 ML Vial ONE (10:30)
[2019-07-05] MEDS ORDERED: PHENYLEPHRINE-NS 100 MCG/ML 10 ML SYRINGE ONE (10:30)
[2019-07-05] MEDS ORDERED: Bisacodyl 10 MG SUPP PR PRN (11:44)
[2019-07-05] MEDS ORDERED: Milk Of Magnesia 30 ML UDCUP PO PRN (11:44)
[2019-07-05] MEDS ORDERED: HYDROcodone/Acetaminophen 7.5/325 mg Tablet PO PRN (11:44)
[2019-07-05] MEDS ORDERED: tiZANidine HCl 4 MG TAB PO PRN (11:44)
[2019-07-05] MEDS ORDERED: Ondansetron PF 4 MG/2 ML Vial IVP PRN (11:44)
[2019-07-05] MEDS ORDERED: Fleet Enema 133 ML BOT PR PRN (11:44)
[2019-07-05] MEDS ORDERED: Mag-Al 1200 mg/1200 mg/30 ML UDCUP PO PRN (11:44)
[2019-07-05] MEDS ORDERED: traMADol HCl 50 MG TAB PO PRN (11:44)
[2019-07-05] MEDS ORDERED: Acetaminophen/Codeine 30-300mg Tablet PO PRN (11:44)
[2019-07-05] MEDS ORDERED: Morphine 2 MG/ML SYRINGE SLOW IVP PRN (11:44)
[2019-07-05] MEDS ORDERED: PROVENTIL INHALER 6.7 G (200 INHALATIONS) INH PRN (11:45)
[2019-07-05] MEDS ORDERED: Ondansetron HCl/PF 4 MG/2 ML Vial IVP PRN (11:57)
--- NOTE | 2019-07-05 15:00 | OP ---
DATE OF PROCEDURE: 07/05/[address] PATCHER: Manasa Jackson PA-C PREPROCEDURE DIAGNOSIS: Lumbar stenosis with low back and leg pain. POSTPROCEDURE DIAGNOSIS: Lumbar stenosis with low back and leg pain. PROCEDURE PERFORMED: L3-L4 and L4-L5 laminectomies, partial facetectomies, and foraminotomies. DESCRIPTION OF PROCEDURE: After informed consent was obtained from the patient, the patient was brought to the OR. Proper patient, pause, and identification were carried out. She was placed under excellent general endotracheal anesthesia and positioned prone on the OR table. All appropriate points were padded. We identified the L3, L4, and L5 dorsal spines and a linear jacquelin was made over this area. This region was sterilely cleansed, prepared, and draped. Proper patient, pause, and identification were carried out. The wound was then opened with a combination of sharp, monopolar, and blunt dissection. We exposed the L3, L4, and L5 dorsal spines and lamina. Localization film confirmed our area of interest. We then performed L3-L4 and L4-L5 laminectomies, partial facetectomies, and foraminotomies with excellent decompression of common dural tube and the L3, L4, and L5 nerve roots. Copious irrigation occurred throughout as did maximizing hemostasis. There was no CSF leak. The wound was then closed in anatomic layers following meticulous hemostasis and the sprinkling of vancomycin powder. The patient then emerged from anesthesia. Job ID: [id number]
[2019-07-05] MEDS: Sodium Chloride 0.9% 1,000 ML IV SCH (16:14)
[2019-07-05] MEDS: CEFAZOLIN 2 GM in Premix Bag 1 BAG IVPB SCH ×2 (16:55→23:16)
[2019-07-05] MEDS: Acetaminophen 325 MG TAB PO PRN (20:01)
[2019-07-06] MEDS: Sodium Chloride 0.9% 1,000 ML IV SCH (02:24)
[2019-07-06] MEDS ORDERED: Alogliptin 25 MG TAB PO SCH (09:00)
[2019-07-06] MEDS ORDERED: Prevnar 13-Val Conj/PF 0.5 ML SYRINGE IM ONE (09:00)
[2019-07-06] MEDS ORDERED: Losartan 25 MG TAB PO SCH (09:00)
[2019-07-06] MEDS: Acetaminophen 325 MG TAB PO PRN (09:44)
[2019-07-06 11:44] VITALS: BP 106/70; TEMP 98.4
--- NOTE | 2019-07-06 12:28 | PRG ---
DATE OF SERVICE: 07/06/2019 Ms. Bateman is doing well, postoperative day 1 from lumbar decompression. She has met criteria for dismissal and will be discharged. Job ID: [id number]
== END 2019-07-06 13:45 | disposition home or self-care (01) ==
LOC: SDC 07:11 → SURG A 13:46 → SDC 07-06 13:45
PROVIDERS: ATTEND Surgery
PROC: 01NB0ZZ Release Lumbar Nerve, Open Approach (ICD-10-PCS; principal; 2019-07-05)
DX: M48.061 Spinal stenosis, lumbar region without neurogenic claudication (principal); M54.16 Radiculopathy, lumbar region; I10 Essential (primary) hypertension; E78.5 Hyperlipidemia, unspecified; R73.03 Prediabetes; K58.9 Irritable bowel syndrome, unspecified; K21.9 Gastro-esophageal reflux disease without esophagitis; M85.88 Other specified disorders of bone density and structure, other site; M19.90 Unspecified osteoarthritis, unspecified site; F32.9 Major depressive disorder, single episode, unspecified; Z79.84 Long term (current) use of oral hypoglycemic drugs; Z79.899 Other long term (current) drug therapy; Z88.8 Allergy status to other drugs, medicaments and biological substances; Z91.048 Other nonmedicinal substance allergy status
CPT/HCPCS: 76000; 80048; 85025; 85610; 85730; J0690; J1200; J2250; J2405; J2704; J2765; J3010; J3370; J3490

== ENCOUNTER 2019-10-16 08:07 | Outpatient (CLI) | payer MEDICARE, BC, OTHER ==
--- NOTE | 2019-10-16 08:52 | BD ---
EXAM: DEXA bone density examination HISTORY: 74-year-old postmenopausal female for screening COMPARISON: None FINDINGS: L1--bone mineral density 0.735 g/sq cm; T score -2.3 L2--bone mineral density 0.875 g/sq cm; T score -1.4 L3--bone mineral density 0.871 g/sq cm; T score -1.9 L4--bone mineral density 0.815 g/sq cm; T score -2.2 Total L1-L4--bone mineral density 0.825 g/sq cm; T score -2.0 Left femoral neck--bone mineral density0.510; T score -3.1 Total proximal left femur--bone mineral density 0.735; T score -1.7 IMPRESSION: Osteoporosis.
--- NOTE | 2019-10-16 09:05 | MMO ---
Bilateral MAMMO Bilat Screen [facility]. CLINICAL HISTORY: Patient is 74 years old and is seen for screening. The patient has the following family history of breast cancer: mother, malignant (generic). The patient has no personal history of cancer. The patient has a history of right Ultrasound Guided Core Biopsy in October, - benign and right Excisional Biopsy in 1974 - benign - two biopsies. VIEWS: The views performed were: bilateral craniocaudal with tomosynthesis and bilateral mediolateral oblique with tomosynthesis. FILMS COMPARED: The present examination has been compared to prior imaging studies performed at [facility] on 07/09/2016, 08/02/2017 and 06/27/2018, and at [facility] on 02/16/2017. This study has been interpreted with the assistance of computer-aided detection. MAMMOGRAM FINDINGS: There are scattered fibroglandular densities. Finding 1: There are stable benign appearing calcifications seen in both breasts. A biopsy clip is seen in the right breast. Finding 2: There are stable post operative changes seen in the right breast. There are no suspicious masses, suspicious calcifications, or new areas of architectural distortion. IMPRESSION: THERE IS NO MAMMOGRAPHIC EVIDENCE OF MALIGNANCY. A ROUTINE FOLLOW-UP MAMMOGRAM IN 1 YEAR IS RECOMMENDED. THE RESULTS OF THIS EXAM WERE SENT TO THE PATIENT. ACR BI-RADS Category 2 - Benign finding MAMMOGRAPHY NOTE: 1. A negative mammogram report should not delay a biopsy if a dominant of clinically suspicious mass is present. 2. Approximately 10% to 15% of breast cancers are not detected by mammography. 3. Adenosis and dense breasts may obscure an underlying neoplasm. Reported by: SORAIDA LEHMAN MD Electonically Signed: [id number]
== END 2019-10-16 08:08 | disposition home or self-care (01) ==
LOC: BICMAMMO 08:07
PROVIDERS: ATTEND Family Medicine
DX: Z12.31 Encounter for screening mammogram for malignant neoplasm of breast (principal); Z13.820 Encounter for screening for osteoporosis; M81.0 Age-related osteoporosis without current pathological fracture; Z80.3 Family history of malignant neoplasm of breast; Z91.89 Other specified personal risk factors, not elsewhere classified; Z78.0 Asymptomatic menopausal state
CPT/HCPCS: 77063; 77067; 77080; U0003; 87635

== ENCOUNTER 2020-02-14 09:37 | Outpatient (CLI) | payer MEDICARE, BC ==
--- NOTE | 2020-02-14 12:49 | CT ---
CT abdomen and pelvis with IV and oral contrast HISTORY: Right abdominal pain. COMPARISON: 01/30/2018. FINDINGS: The lung bases are clear. Gallbladder is surgically absent. Large simple cyst at the superi or pole right kidney is 7.4 cm greatest diameter, stable. The low-density lesion, presumed cyst, at the lateral cortex of the left kidney is unchanged in size and appearance, measuring 1.3 cm greatest length on the current coronal images by 1.1 cm width on the axial images. No free air or free fluid. Appendix not visualized, possibly surgically absent. Areas of nondistended colon peristalsis are evid ent. No mass reliably demonstrated. Postoperative changes lower lumbar spine. Small benign-appearing bone islands in the left side of the sacrum and the left iliac wing stable. IMPRESSION : No acute abnormalities are demonstrated to explain abdomen pain. Postoperative changes including cholecystectomy (and possibly appendectomy). Renal cysts and other chronic-type findings are stable.
== END 2020-02-14 09:38 | disposition home or self-care (01) ==
LOC: SCSCT 09:37
PROVIDERS: ATTEND Family Medicine
DX: N28.9 Disorder of kidney and ureter, unspecified (principal); R10.30 Lower abdominal pain, unspecified; Z90.49 Acquired absence of other specified parts of digestive tract; N28.1 Cyst of kidney, acquired; Z98.890 Other specified postprocedural states
CPT/HCPCS: 74177

== ENCOUNTER 2020-04-09 10:33 | Outpatient (CLI) | payer MEDICARE, BC | END 2020-04-09 10:34 | disposition home or self-care (01) | LOC: CTENTCT 10:33 | PROVIDERS: ATTEND Student in an Organized Health Care Education/Training Program | DX: J32.9 Chronic sinusitis, unspecified (principal) | CPT/HCPCS: 70486 ==

== ENCOUNTER 2020-07-07 12:27 | Observation (INO) | payer MEDICARE, BC ==
[~2020-07-07 12:27] MED LIST changes: -Bupivacaine HCl 0.5%/Epinephrine 1:200,000/PF 30 ml Vial ONE; -Bupivacaine/Epinephrine 0.25% 30 ML VIAL ONE; +Iopamidol-370 76% 500 ML 1 ML ONE
[2020-07-07 13:15] LABS: #Basophils 0.1 thou/uL (0.0-0.2); #Eosinphils 0.2 thou/uL (0.0-0.7); #Lymphocytes 2.5 thou/uL (1.20-3.40); #Monocytes 0.6 thou/uL (0.11-0.59); #Neutrophils 7.6 thou/uL (1.40-6.50); %Basophils 0.5 % (0.0-1.0); %Monocytes 5.2 % (0.0-10.0); %Neutrophils 69.4 % (42.0-75.0); Hemoglobin 14.9 g/dL (12.0-16.0); Mean Corpuscular HGB CONC 33.9 g/dL (32.0-36.0); Mean Corpuscular Volume 91.4 fL (78.0-98.0); Mean Platelet Volume 8.3 fL (7.4-10.4); Platelet Count 220 thou/uL (130-400); RBC Distribution Width 12.7 % (11.5-14.5); Red Blood Cell (RBC) Count 4.82 mill/uL (4.20-5.40)
[2020-07-07 13:44] LABS: ALT (SGPT) 51 U/L (8-55); AST (SGOT) 37 U/L (5-34); Albumin 3.9 g/dL (3.4-4.8); Alkaline Phosphatase 101 U/L (40-110); Anion Gap 17 mmol/L (10-20); BUN (Urea Nitrogen) 9 mg/dL (9.8-20.1); Bilirubin, Total 0.3 mg/dL (0.2-1.2); Calc. Creatinine Clearance 0 mL/min (70-130); Calcium 8.7 mg/dL (7.8-10.44); Carbon Dioxide 20 mmol/L (23-31); Chloride 107 mmol/L (98-107); Globulin 3.3 g/dL (2.4-3.5); Glucose 163 mg/dL (83-110); Lipase 68 U/L (8-78); Potassium 5.4 mmol/L (3.5-5.1); Protein, Total 7.2 g/dL (5.8-8.1); Sodium 139 mmol/L (136-145)
[2020-07-07] MEDS ORDERED: HumaLOG 300 UNITS/3 ML VIAL SC PRN ×2 (16:41)
[2020-07-07] MEDS ORDERED: Dextrose 50% Abboject 50 ML SYRINGE SLOW IVP PRN (16:41)
[2020-07-07] MEDS ORDERED: Dextrose 5% in Water 1,000 ML IV PRN (16:41)
[2020-07-07] MEDS ORDERED: Aspirin Chewable 81 MG TAB PO SCH (17:00)
[2020-07-07 18:49] LABS: Troponin I Less than 0.010 ng/mL (< 0.028)
[2020-07-07] MEDS ORDERED: Aspirin Chewable 81 MG TAB ONE ×2 (19:14→22:16)
[2020-07-07 21:25] LABS: Troponin I Less than 0.010 ng/mL (< 0.028)
[2020-07-07 22:54] VITALS: BMI 40.5
[2020-07-08 04:39] LABS: #Basophils 0.1 thou/uL (0.0-0.2); #Eosinphils 0.3 thou/uL (0.0-0.7); #Lymphocytes 2.8 thou/uL (1.20-3.40); #Monocytes 0.5 thou/uL (0.11-0.59); #Neutrophils 5.9 thou/uL (1.40-6.50); %Basophils 0.6 % (0.0-1.0); %Eosinophils 2.9 % (0.0-10.0); %Lymphocytes 29.5 % (21.0-51.0); %Monocytes 5.2 % (0.0-10.0); %Neutrophils 61.8 % (42.0-75.0); Hemoglobin 13.2 g/dL (12.0-16.0); Mean Corpuscular Hemoglobin 28.2 pg (27.0-31.0); Mean Platelet Volume 8.4 fL (7.4-10.4); Platelet Count 209 thou/uL (130-400); RBC Distribution Width 12.8 % (11.5-14.5); Red Blood Cell (RBC) Count 4.68 mill/uL (4.20-5.40); White Blood Cell (WBC) Count 9.6 thou/uL (4.8-10.8)
[2020-07-08 05:02] LABS: Anion Gap 14 mmol/L (10-20); BUN (Urea Nitrogen) 16 mg/dL (9.8-20.1); Calc. Creatinine Clearance 114 mL/min (70-130); Calcium 9.1 mg/dL (7.8-10.44); Carbon Dioxide 27 mmol/L (23-31); Cardiac Risk 7.6 (Less than 4.5); Chloride 105 mmol/L (98-107); Cholesterol 219 mg/dl (< 200 Desired); Glucose 179 mg/dL (83-110); HDL Cholesterol 29 mg/dL (>60 Neg Risk); LDL Cholesterol, Calculated 154 mg/dL; Potassium 3.9 mmol/L (3.5-5.1); Sodium 142 mmol/L (136-145); Triglycerides 178 mg/dL (Less than 150)
[2020-07-08] MEDS ORDERED: Aspirin Chewable 81 MG TAB PO SCH (09:00)
[2020-07-08] MEDS ORDERED: Alogliptin 25 MG TAB PO SCH (10:30)
[2020-07-08] MEDS ORDERED: ADENOSINE 60 MG/20 ML VIAL ONE (10:35)
[2020-07-08 11:49] LABS: SARS-CoV-2 PCR NAA for Saliva Not Detected (NotDetected)
[2020-07-08 11:57] VITALS: BP 144/67; TEMP 98.1
[2020-07-09] MEDS ORDERED: Cholecalciferol 1,000 UNITS (25 MCG) TAB PO SCH (09:00)
[2020-07-09] MEDS ORDERED: Losartan 25 MG TAB PO SCH (09:00)
[2020-07-09] MEDS ORDERED: Alogliptin 25 MG TAB PO SCH (09:00)
== END 2020-07-08 15:49 | disposition home or self-care (01) ==
LOC: ERS 12:27 → ERHOLD 15:26 → 2NO 22:56
PROVIDERS: ADMIT Internal Medicine; ATTEND Internal Medicine
DX: R07.89 Other chest pain (principal); R06.02 Shortness of breath; I10 Essential (primary) hypertension; E78.5 Hyperlipidemia, unspecified; E11.9 Type 2 diabetes mellitus without complications; I48.20 Chronic atrial fibrillation, unspecified; E78.00 Pure hypercholesterolemia, unspecified; R91.1 Solitary pulmonary nodule; K21.9 Gastro-esophageal reflux disease without esophagitis; F32.9 Major depressive disorder, single episode, unspecified; Z79.84 Long term (current) use of oral hypoglycemic drugs; Z79.899 Other long term (current) drug therapy; Z88.8 Allergy status to other drugs, medicaments and biological substances; Z91.048 Other nonmedicinal substance allergy status; Z20.822 Contact with and (suspected) exposure to COVID-19
CPT/HCPCS: 71045; 71275; 78452; 80048; 80053; 80061; 82962 ×2; 83690; 84484 ×2; 85025 ×2; 85379; 93005; 93017; 94760; 99285; A9500; U0003; U0005; 36415; 36416; 87635; G0378; J0153; Q9967

== ENCOUNTER 2020-10-16 14:20 | Outpatient (CLI) | payer MEDICARE, BC | END 2020-10-16 14:21 | disposition home or self-care (01) | LOC: BICMAMMO 14:20 | PROVIDERS: ATTEND Family Medicine | DX: Z12.31 Encounter for screening mammogram for malignant neoplasm of breast (principal); Z91.89 Other specified personal risk factors, not elsewhere classified; Z80.3 Family history of malignant neoplasm of breast | CPT/HCPCS: 77063; 77067 ==

== ENCOUNTER 2021-03-05 10:58 | Outpatient (CLI) | payer MEDICARE, BC | END 2021-03-05 10:59 | disposition home or self-care (01) | LOC: SCSRAD 10:58 | PROVIDERS: ATTEND Urology | DX: N20.0 Calculus of kidney (principal); N28.89 Other specified disorders of kidney and ureter | CPT/HCPCS: 71046 ==

== ENCOUNTER 2021-05-25 14:07 | Outpatient (CLI) | payer MEDICARE, BC ==
[2021-05-25 15:48] LABS: Hemoglobin 15.2 g/dL (12.0-15.5); Mean Corpuscular HGB CONC 31.1 g/dL (32.0-36.0); Mean Corpuscular Hemoglobin 28.8 pg (27.0-33.0); Mean Corpuscular Volume 92.4 fl (81.6-98.3); Mean Platelet Volume 10.5 fl (7.4-10.4); Platelet Count 258 10x3/uL (150-450); RBC Distribution Width 13.2 % (11.5-14.5); Red Blood Cell (RBC) Count 5.28 10x6/uL (3.90-5.03); White Blood Cell (WBC) Count 10.2 10x3/uL (3.5-10.5)
[2021-05-25 15:58] LABS: Prothrombin Time 10.6 sec (9.5-12.1)
[2021-05-26 17:56] LABS: SARS-CoV-2 PCR by NAA Not Detected (NotDetected)
== END 2021-05-25 14:08 | disposition home or self-care (01) ==
LOC: LABBT 14:07
PROVIDERS: ATTEND Urology
DX: Z01.818 Encounter for other preprocedural examination (principal); N20.0 Calculus of kidney; Z87.442 Personal history of urinary calculi; M54.50 Low back pain, unspecified; N28.89 Other specified disorders of kidney and ureter; R35.0 Frequency of micturition; N39.46 Mixed incontinence; R81 Glycosuria; N39.0 Urinary tract infection, site not specified; R31.9 Hematuria, unspecified; Z20.822 Contact with and (suspected) exposure to COVID-19
CPT/HCPCS: 85027; 85610; 85730; 93005; U0003; U0005; 93010

== ENCOUNTER 2021-05-27 07:09 | Day surgery (SDC) | payer MEDICARE, BC ==
[2021-05-25 10:46] VITALS: BMI 39.4
[2021-05-27] MEDS ORDERED: Levofloxacin 500 mg/D5W 100 ml Premix Bag ONE (10:13)
[2021-05-27] MEDS ORDERED: Fentanyl 100 MCG/2 ML VIAL ONE (11:31)
[2021-05-27] MEDS ORDERED: Dexamethasone 20 MG/5 ML VIAL ONE (11:54)
[2021-05-27] MEDS ORDERED: Ketorolac Tromethamine 30 MG/ML VIAL ONE (11:54)
[2021-05-27] MEDS ORDERED: PHENYLEPHRINE-NS 100 MCG/ML 10 ML SYRINGE ONE (11:54)
[2021-05-27] MEDS ORDERED: Rocuronium Bromide 10 MG/ML (10ML VIAL) ONE (11:54)
[2021-05-27] MEDS ORDERED: Glycopyrrolate 0.2 MG/ML 5 ML SYRINGE ONE (11:54)
[2021-05-27] MEDS ORDERED: PROPOFOL 200 MG/20 ML VIAL ONE (11:54)
[2021-05-27] MEDS ORDERED: Ondansetron PF 4 MG/2 ML Vial ONE (11:54)
[2021-05-27] MEDS ORDERED: Lidocaine 1% PF 5 ML VIAL ONE (11:54)
[2021-05-27] MEDS ORDERED: Iothalamate Meglumine 60% 50 ML VIAL FS ONE (12:01)
[2021-05-27] MEDS ORDERED: SUGAMMADEX SODIUM 200 MG/2 ML VIAL ONE (13:03)
[2021-05-27] MEDS ORDERED: Oxybutynin 5 MG TAB ONE (14:12)
[2021-05-27] MEDS ORDERED: Phenazopyridine HCl 100 MG TAB ONE ×2 (14:12)
== END 2021-05-27 16:48 | disposition home or self-care (01) ==
LOC: SDC 07:09
PROVIDERS: ATTEND Urology
PROC: 0TC38ZZ Extirpation of Matter from Right Kidney Pelvis, Via Natural or Artificial Opening Endoscopic (ICD-10-PCS; principal; 2021-05-27)
PROC: 0T768DZ Dilation of Right Ureter with Intraluminal Device, Via Natural or Artificial Opening Endoscopic (ICD-10-PCS; 2021-05-27)
DX: N20.0 Calculus of kidney (principal); N13.5 Crossing vessel and stricture of ureter without hydronephrosis; N28.89 Other specified disorders of kidney and ureter; N39.46 Mixed incontinence; I10 Essential (primary) hypertension; E11.9 Type 2 diabetes mellitus without complications; E78.5 Hyperlipidemia, unspecified; K21.9 Gastro-esophageal reflux disease without esophagitis; M85.859 Other specified disorders of bone density and structure, unspecified thigh; M17.11 Unilateral primary osteoarthritis, right knee; Z87.440 Personal history of urinary (tract) infections; Z79.82 Long term (current) use of aspirin; Z79.84 Long term (current) use of oral hypoglycemic drugs; Z79.899 Other long term (current) drug therapy; Z88.8 Allergy status to other drugs, medicaments and biological substances; Z91.048 Other nonmedicinal substance allergy status; Z96.652 Presence of left artificial knee joint
CPT/HCPCS: 52356; 74018; 74420; Q9961; C2617; J1100; J1885; J1956; J2405; J2704; J3010

== ENCOUNTER 2021-10-19 09:58 | Outpatient (CLI) | payer MEDICARE, BC | END 2021-10-19 09:59 | disposition home or self-care (01) | LOC: BICMAMMO 09:58 | PROVIDERS: ATTEND Family Medicine | DX: Z12.31 Encounter for screening mammogram for malignant neoplasm of breast (principal); Z91.89 Other specified personal risk factors, not elsewhere classified; Z80.3 Family history of malignant neoplasm of breast | CPT/HCPCS: 77063; 77067 ==

== ENCOUNTER 2021-10-21 11:51 | Outpatient (CLI) | payer MEDICARE, BC | END 2021-10-21 11:52 | disposition home or self-care (01) | LOC: BICULT 11:51 | PROVIDERS: ATTEND Urology | DX: N20.0 Calculus of kidney (principal); N39.0 Urinary tract infection, site not specified; C64.2 Malignant neoplasm of left kidney, except renal pelvis; N28.1 Cyst of kidney, acquired | CPT/HCPCS: 76770 ==

== ENCOUNTER 2022-02-10 14:09 | Outpatient (CLI) | payer MEDICARE, BC | END 2022-02-10 14:10 | disposition home or self-care (01) | LOC: SCSMRI 14:09 | PROVIDERS: ATTEND Surgery | DX: D43.2 Neoplasm of uncertain behavior of brain, unspecified (principal); G93.89 Other specified disorders of brain | CPT/HCPCS: 70553; 82565 ==

== ENCOUNTER 2022-04-01 08:46 | Outpatient (CLI) | payer MEDICARE, BC | END 2022-04-01 08:47 | disposition home or self-care (01) | LOC: SCSMRI 08:46 | PROVIDERS: ATTEND Surgery | DX: M47.26 Other spondylosis with radiculopathy, lumbar region (principal); M48.062 Spinal stenosis, lumbar region with neurogenic claudication; M47.27 Other spondylosis with radiculopathy, lumbosacral region; M47.25 Other spondylosis with radiculopathy, thoracolumbar region; Z98.890 Other specified postprocedural states | CPT/HCPCS: 72120; 72148 ==

== ENCOUNTER 2022-11-30 09:26 | Outpatient (CLI) | payer MEDICARE | END 2022-11-30 09:27 | disposition home or self-care (01) | LOC: BICMAMMO 09:26 | PROVIDERS: ATTEND Family Medicine | DX: Z12.31 Encounter for screening mammogram for malignant neoplasm of breast (principal); Z80.3 Family history of malignant neoplasm of breast; Z91.89 Other specified personal risk factors, not elsewhere classified | CPT/HCPCS: 77063; 77067 ==

== ENCOUNTER 2023-10-06 10:54 | Emergency (ER) | payer MEDICARE ==
[2023-10-06] MEDS ORDERED: Labetalol HCl 100 MG/20 ML VIAL ONE (12:38)
[2023-10-06 12:43] LABS: #Basophils 0.04 10x3/uL (0.0-0.2); %Basophils 0.5 % (0.0-1.0); %Lymphocytes 22.9 % (21.0-51.0); %Monocytes 4.6 % (0.0-10.0); %Neutrophils 68.6 % (42.0-75.0); Hemoglobin 14.7 g/dL (12.0-16.0); Mean Corpuscular HGB CONC 34.2 g/dL (32.0-36.0); Mean Corpuscular Hemoglobin 31.3 pg (27.0-31.0); Mean Corpuscular Volume 91.7 fL (78.0-98.0); Platelet Count 226 10x3/uL (130-400); RBC Distribution Width 12.9 % (11.5-14.5); Red Blood Cell (RBC) Count 4.69 mill/uL (4.20-5.40)
[2023-10-06 13:02] LABS: Troponin I Less than 0.010 ng/mL (< 0.028)
[2023-10-06 13:13] LABS: ALT (SGPT) 76 U/L (8-55); AST (SGOT) 57 U/L (5-34); Albumin 3.9 g/dL (3.4-4.8); Alkaline Phosphatase 95 U/L (40-110); Anion Gap 15 mmol/L (10-20); BUN (Urea Nitrogen) 12 mg/dL (9.8-20.1); Bilirubin, Total 0.5 mg/dL (0.2-1.2); Calc. Creatinine Clearance 0 mL/min (70-130); Calcium 9.5 mg/dL (7.8-10.44); Carbon Dioxide 27 mmol/L (23-31); Chloride 107 mmol/L (98-107); Estimated GFR 89; Globulin 3.7 g/dL (2.4-3.5); Glucose 135 mg/dL (83-110); Potassium 4.3 mmol/L (3.5-5.1); Protein, Total 7.6 g/dL (5.8-8.1); Sodium 145 mmol/L (136-145)
[2023-10-06 13:40] LABS: Bacteria/HPF None Seen HPF (None Seen); Bilirubin Negative (Negative); Blood, Urine Negative (Negative); CAUTI Indications for Culture Dysuria,urgency,freq; Clarity Clear (Clear); Glucose, Urine (Dipstick) Normal (Negative); Ketone, Urine Negative (Negative); Leukocyte Negative Leu/uL (Negative); Nitrite Negative (Negative); Protein, Urine (Dipstick) Negative (Neg-Trace); RBC/HPF 0-3 HPF (0-3); Specific Gravity, Urine 1.006 (1.002-1.036); Squamous Epithelial None Seen HPF (0-3); Urobilinogen Normal mg/dL (Less than 2); WBC/HPF None Seen HPF (0-3)
[2023-10-06 13:42] LABS: Urine Culture Reflex No No
[2023-10-06] MEDS ORDERED: hydrALAZINE 20 MG/ML VIAL ONE (13:53)
== END 2023-10-06 14:20 | disposition home or self-care (01) ==
LOC: ERS 10:54
DX: I10 Essential (primary) hypertension (principal); I48.91 Unspecified atrial fibrillation; E11.9 Type 2 diabetes mellitus without complications; K21.9 Gastro-esophageal reflux disease without esophagitis; E78.5 Hyperlipidemia, unspecified; Z79.82 Long term (current) use of aspirin; Z55.6 Problems related to health literacy; Z75.3 Unavailability and inaccessibility of health-care facilities; Z79.84 Long term (current) use of oral hypoglycemic drugs; Z79.899 Other long term (current) drug therapy
CPT/HCPCS: 70450; 71045; 80053; 81001; 83880; 84484; 85025; 87086; 93005; 94760; 96374; 96375; 99284; J0360

== ENCOUNTER 2024-05-29 12:39 | Outpatient (CLI) | payer MEDICARE | END 2024-05-29 12:40 | disposition home or self-care (01) | LOC: SCSMRI 12:39 | PROVIDERS: ATTEND Family Medicine | DX: G93.89 Other specified disorders of brain (principal) | CPT/HCPCS: 70553; 76376 ==

== ENCOUNTER 2025-04-12 07:14 | Emergency (ER) | payer MEDICARE ==
[2025-04-12 07:50] LABS: #Basophils 0.05 10x3/uL (0.0-0.2); #Eosinophils 0.13 10x3/uL (0.0-0.7); #Monocytes 0.68 10x3/uL (0.11-0.59); #Neutrophils 9.53 10x3/uL (1.40-6.50); %Basophils 0.4 % (0.0-1.0); %Eosinophils 1.1 % (0.0-10.0); %Lymphocytes 11.2 % (21.0-51.0); %Monocytes 5.8 % (0.0-10.0); %Neutrophils 81.2 % (42.0-75.0); Hematocrit 42.6 % (36.0-47.0); Hemoglobin 14.0 g/dL (12.0-16.0); Mean Corpuscular Hemoglobin 30.0 pg (27.0-31.0); Mean Corpuscular Volume 91.2 fL (78.0-98.0); Platelet Count 265 10x3/uL (130-400); Red Blood Cell (RBC) Count 4.67 mill/uL (4.20-5.40); White Blood Cell (WBC) Count 11.75 10x3/uL (4.8-10.8)
[2025-04-12 08:01] LABS: ALT (SGPT) 29 U/L (Less than 34); AST (SGOT) 34 U/L (11-34); Albumin 4.0 g/dL (3.1-4.5); Alkaline Phosphatase 67 U/L (40-110); Anion Gap 17 mmol/L (10-20); BUN (Urea Nitrogen) 16 mg/dL (9.8-20.1); Bilirubin, Total 0.7 mg/dL (0.3-1.2); Calc. Creatinine Clearance 0 mL/min (70-130); Calcium 9.5 mg/dL (7.8-10.44); Carbon Dioxide 21 mmol/L (23-31); Chloride 106 mmol/L (98-107); Globulin 3.6 g/dL (2.4-3.5); Glucose 138 mg/dL (83-110); Lipase 39 U/L (8-78); Potassium 5.3 mmol/L (3.5-5.1); Sodium 139 mmol/L (136-145)
[2025-04-12] MEDS ORDERED: Aspirin Chewable 81 MG TAB ONE (08:19)
[2025-04-12] MEDS ORDERED: Nitroglycerin 2% Ointment 1 INCH/1 GM Packet ONE (08:19)
[2025-04-12] MEDS ORDERED: Lidocaine Viscous Sol 2% 15 ml UD Cup ONE (08:52)
[2025-04-12] MEDS ORDERED: Mag-Al 1200 mg/1200 mg/30 ML UDCUP ONE (08:52)
[2025-04-12] MEDS ORDERED: Iopamidol-370 76% 500 ML MDV (1 ML CHARGE) ONE (13:59)
== END 2025-04-12 13:18 | disposition home or self-care (01) ==
LOC: ERS 07:14
DX: R07.89 Other chest pain (principal); K21.9 Gastro-esophageal reflux disease without esophagitis; I10 Essential (primary) hypertension; E11.9 Type 2 diabetes mellitus without complications; Z79.899 Other long term (current) drug therapy; Z79.82 Long term (current) use of aspirin
CPT/HCPCS: 71045; 71275; 80053; 83690; 83880; 84484; 85025; 85379; 93005; Q9967